=== PATIENT | female | born 1950 ===

== ENCOUNTER 2018-12-11 19:28 | Emergency (ER) | payer OTHER ==
[2018-12-11 19:53] VITALS: BMI 32.1
[2018-12-11 20:06] VITALS: TEMP 98.5
--- NOTE | 2018-12-11 20:20 | ED PDOC ---
Arrival/HPI <Bobby Trujillo - Last Filed: 12/11/18 23:20> - General Historian: Patient - History of Present Illness Narrative History of Present Illness (Text): 12/11/18 20:17 68-year-old female presents the emergency room complaining of a hematoma to the back of her head. Patient states that she slipped down 3 steps when she was cleaning her stairs and hit the back of her head. Patient states she initially went to [facility] to be evaluated however was referred to the ER for further evaluation. Patient states that she believes she may have passed out for approximately 1 minute and regained consciousness on her own. Otherwise she only reports of a headache. Denies any nausea, vomiting, neck pain, back pain, any other injury. Patient has no other complaints. PMD Melyssa <Melissa Medina - Last Filed: 12/12/18 00:24> - General Chief Complaint: Trauma Time Seen by Provider: 12/11/18 19:31 Past Medical History - Cardiac Hx Hypertension: Yes - Psychiatric Hx Substance Use: No - Anesthesia Hx Anesthesia: No <Melissa Meidna - Last Filed: 12/12/18 00:24> Family/Social History Family/Social History: No Known Family HX Smoking Status: Never Smoked Hx Alcohol Use: No Hx Substance Use: No <Melissa Medina - Last Filed: 12/12/18 00:24> Allergies/Home Meds <Bobby Trujillo - Last Filed: 12/11/18 23:20> <Melissa Medina - Last Filed: 12/12/18 00:24> Allergies/Adverse Reactions: Allergies aspirin Adverse Reaction (Verified 12/11/18 19:53) VOMITING Review of Systems - Review of Systems Constitutional: absent: Fatigue, Fevers Respiratory: absent: SOB, Cough Cardiovascular: absent: Chest Pain, Palpitations Gastrointestinal: absent: Nausea, Vomiting Musculoskeletal: absent: Arthralgias, Back Pain, Neck Pain Skin: absent: Rash, Pruritis Neurological: Headache. absent: Dizziness <Melissa Medina - Last Filed: 12/12/18 00:24> Physical Exam Vital Signs Temp Pulse Resp BP Pulse Ox 12/11/18 19:57 98.5 F 71 18 152/77 H 96 <Ronnie,Bobby - Last Filed: 12/11/18 23:20> Vital Signs Temp Pulse Resp BP Pulse Ox 12/11/18 19:57 98.5 F 71 18 152/77 H 96 Temperature: Afebrile Blood Pressure: Hypertensive Pulse: Regular Respiratory Rate: Normal Appearance: Positive for: Well-Appearing, Non-Toxic, Comfortable Pain Distress: Mild Mental Status: Positive for: Alert and Oriented X 3 - Systems Exam Head: Present: Other (+tender hematoma to the occipital scalp ~6 cm in size) Pupils: Present: PERRL Extroacular Muscles: Present: EOMI Conjunctiva: Present: Normal Mouth: Present: Moist Mucous Membranes Neck: Present: Normal Range of Motion, MIDLINE TENDERNESS (+mild midline tenderness). No: Paraspinal Tenderness Respiratory/Chest: Present: Clear to Auscultation, Good Air Exchange. No: Respiratory Distress, Accessory Muscle Use Cardiovascular: Present: Regular Rate and Rhythm, Normal S1, S2. No: Murmurs Abdomen: No: Tenderness, Distention, Peritoneal Signs Back: Present: Normal Inspection. No: Midline Tenderness, Paraspinal Tenderness Upper Extremity: Present: Normal Inspection. No: Cyanosis, Edema Lower Extremity: Present: Normal Inspection. No: Edema Neurological: Present: GCS=15, CN II-XII Intact, Speech Normal, Motor Func Grossly Intact, Normal Sensory Function, Gait Normal Skin: Present: Warm, Dry, Normal Color. No: Rashes Psychiatric: Present: Alert, Oriented x 3, Normal Insight, Normal Concentration <Melissa Medina - Last Filed: 12/12/18 00:24> Medical Decision Making - RAD Interpretation Radiology Orders: 12/11/18 19:59 HEAD W/O CONTRAST [CT] Stat 12/11/18 20:16 CERVICAL SPINE W/O CONTRAST [CT] Stat - Medication Orders Current Medication Orders: Discontinued Medications Acetaminophen (Tylenol 325mg Tab) 975 mg PO STAT STA Stop: 12/11/18 20:17 Last Admin: 12/11/18 20:26 Dose: 975 mg MAR Pain/Vitals Document 12/11/18 20:26 KV (Rec: 12/11/18 20:26 KV [id number]) Pain Reassessment Is This A Pain ReAssessment? No Sleep Is patient sleeping during reassessment? No Presence of Pain Presence of Pain Yes Pain Scale Used Protocol: PSCALES Pain Scale Used Numeric Location Pain Location Body Sales Support Representative Description Constant Throbbing Intensity 10 Scale Used Numeric <Ronnie,Bobby - Last Filed: 12/11/18 23:20> ED Course and Treatment: 12/11/18 20:20 CT head & C spine w/o contrast ordered, patient medicated with tylenol po. CT head w/o contrast : CLINICAL HISTORY: S/p fall TECHNIQUE: Axial computed tomography images of the head/brain without intravenous contrast. COMPARISON: None provided. FINDINGS: BRAIN: No CT evidence for acute intracranial hemorrhage. No midline shift or mass effect. VENTRICLES: No hydrocephalus. ORBITS: The orbits are unremarkable. SINUSES AND MASTOIDS: The paranasal sinuses and mastoid air cells are clear. BONES: No evidence for displaced calvarial fractures. SOFT TISSUES: There is fatty stranding, soft tissue swelling and slight hematoma in the occipital scalp most notably just to the left of midline. MISCELLANEOUS: No evidence for acute territorial infarction. IMPRESSION: 1. There is fatty stranding, soft tissue swelling and slight hematoma in the occipital scalp most notably just to the left of midline. 2. No CT evidence for acute intracranial abnormality or displaced calvarial fracture. CT C spine w/o contrast : CLINICAL HISTORY: S/p fall TECHNIQUE: Axial computed tomography images of the cervical spine without intravenous contrast. Sagittal and coronal reformatted images were generated. COMPARISON: None provided. FINDINGS: ALIGNMENT: There is reversal of the normal cervical lordosis. No evidence for acute fracture or subluxation. DEGENERATIVE CHANGES: Mild multilevel degenerative changes. SOFT TISSUES: No focal prevertebral soft tissue swelling. BONES: No acute fracture or aggressive appearing osseous lesion. IMPRESSION: 1. There is reversal of the normal cervical lordosis. 2. Mild multilevel degenerative changes. 3. No focal prevertebral soft tissue swelling. 4. No evidence for acute fracture or subluxation. On reevaluation, patient remains awake alert and oriented 3 in no acute distress. Repeat neuro exam shows no focal findings. CT results d/w the patient and her family. Advised to follow up with primary care physician in 1-2 days without fail. Advised to take only tylenol for pain. Return to the emergency room at any time for any new or worsening symptoms. Patient states she fully agrees with and understands discharge instructions. States that she agrees with the plan and disposition. Verbalized and repeated discharge instructions and plan. I have given the patient opportunity to ask any additional questions. - RAD Interpretation Radiology Orders: 12/11/18 19:59 HEAD W/O CONTRAST [CT] Stat 12/11/18 20:16 CERVICAL SPINE W/O CONTRAST [CT] Stat - Medication Orders Current Medication Orders: Acetaminophen (Tylenol 325mg Tab) 975 mg PO STAT STA Stop: 12/11/18 20:17 <Melissa Medina - Last Filed: 12/12/18 00:24> - PA / CANE WEIGHER HELPER / Resident Statement VERA has reviewed & agrees with the documentation as recorded. VERA has examined the patient and agrees with the treatment plan. <Bobby Trujillo - Last Filed: 12/11/18 23:20> - PA / CANE WEIGHER HELPER / Resident Statement VERA has reviewed & agrees with the documentation as recorded. <Melissa Medina - Last Filed: 12/12/18 00:24> Disposition/Present on Arrival <Bobby Trujillo - Last Filed: 12/11/18 23:20> - Present on Arrival Any Indicators Present on Arrival: No History of DVT/PE: No History of Uncontrolled Diabetes: No Urinary Catheter: No History of Decub. Ulcer: No History Surgical Site Infection Following: None - Disposition Have Diagnosis and Disposition been Completed?: Yes Disposition Time: 23:00 Patient Plan: Discharge <Melissa Medina - Last Filed: 12/12/18 00:24> - Disposition Diagnosis: Head injury, Scalp hematoma Disposition: HOME/ ROUTINE Condition: FAIR Discharge Instructions (ExitCare): Closed Head Injury, Contusion (DC) Additional Instructions: Thank you for letting us take care of you today. You were treated for head injury, scalp hematoma. The emergency medical care you received today was directed at your acute symptoms. Take only tylenol for pain. It may take several days for your symptoms to resolve. Return to the Emergency Department if your symptoms worsen, do not improve, or if you have any other problems. Please contact your doctor in 2 days for re-evaluation and follow up. Bring any paperwork you were given at discharge with you along with any medications you are taking to your follow up visit. Our treatment cannot replace ongoing medical care by a primary care provider (PCP) outside of the emergency department. Thank you for allowing the [email or web address] team to be part of your care today. If you had a CT scan: A Radiologist will review the ED reading if any change in treatment is needed we will contact you. Referrals: Kenia Ragsadle MD [Primary Care Provider] - Follow up with primary Forms: [employer] ([place])
[2018-12-11 21:02] VITALS: PULSE 69; RESP 16; O2SAT 98
[2018-12-11 23:39] VITALS: BP 138/79
--- NOTE | 2018-12-12 08:50 | CT ---
Date of service: 12/11/2018 PROCEDURE: CT Cervical Spine without contrast HISTORY: fall, trauma COMPARISON: None available. TECHNIQUE: Axial computed tomography images were obtained of the cervical spine without the use of intravenous contrast. Coronal and sagittal reformatted images were created and reviewed. Radiation dose: Total exam DLP = 480.59 mGy-cm. This CT exam was performed using one or more of the following dose reduction techniques: Automated exposure control, adjustment of the mA and/or kV according to patient size, and/or use of iterative reconstruction technique. FINDINGS: VERTEBRAE: No fracture. Normal alignment. No destructive bony lesion. DISCS/SPINAL CANAL/NEURAL FORAMINA: Multilevel degenerative disc disease with slight anterolisthesis at C3-4 and C4-5. Disc ridge complex at C6-7. PARASPINAL SOFT TISSUES: Unremarkable. OTHER FINDINGS: None. IMPRESSION: Degenerative changes. No acute fracture.
--- NOTE | 2018-12-12 08:53 | CT ---
Date of service: 12/11/2018 PROCEDURE: CT HEAD WITHOUT CONTRAST. HISTORY: head trauma, fall COMPARISON: None available. TECHNIQUE: Axial computed tomography images were obtained through the head/brain without intravenous contrast. Radiation dose: Total exam DLP = 728.46 mGy-cm. This CT exam was performed using one or more of the following dose reduction techniques: Automated exposure control, adjustment of the mA and/or kV according to patient size, and/or use of iterative reconstruction technique. FINDINGS: HEMORRHAGE: No intracranial hemorrhage. BRAIN: No mass effect or edema. No atrophy or chronic microvascular ischemic changes. VENTRICLES: Unremarkable. No hydrocephalus. CALVARIUM: Unremarkable. PARANASAL SINUSES: Unremarkable as visualized. No significant inflammatory changes. MASTOID AIR CELLS: Unremarkable as visualized. No inflammatory changes. OTHER FINDINGS: None. IMPRESSION: Normal CT of the Head.
== END 2018-12-11 23:20 | disposition home or self-care (01) ==
LOC: ED 19:28
DX: S00.03XA Contusion of scalp, initial encounter (principal); W10.9XXA Fall (on) (from) unspecified stairs and steps, initial encounter; I10 Essential (primary) hypertension